=== PATIENT | male | born 1935 | race Caucasian/White ===

== ENCOUNTER 2017-05-04 23:58 | Emergency (ER) | payer BC ==
[~2017-05-04] VITALS: Ht 182.9 cm; Wt 90.7 kg
[~2017-05-04 23:58] MED LIST: RIVA20TA PO
[2017-05-05 00:25] VITALS: BP_SYST 117
[2017-05-05] MEDS ORDERED: CARBIDOPA/LEVODOPA 25/100 MG TABLET PO ONE (01:45)
[2017-05-05] MEDS ORDERED: CARBIDOPA/LEVODOPA 25/100 MG TABLET ONE (02:09)
[2017-05-05 02:55] VITALS: BP_SYST 127
== END 2017-05-05 02:55 | disposition home or self-care (01) ==
LOC: SED 23:58
DX: F03.90 Unspecified dementia, unspecified severity, without behavioral disturbance, psychotic disturbance, mood disturbance, and anxiety (principal); I48.91 Unspecified atrial fibrillation; I10 Essential (primary) hypertension; Z86.73 Personal history of transient ischemic attack (TIA), and cerebral infarction without residual deficits; Z85.46 Personal history of malignant neoplasm of prostate; Z88.0 Allergy status to penicillin
CPT/HCPCS: 99283

== ENCOUNTER 2017-12-16 14:17 | Inpatient (IN) | payer BC ==
[~2017-12-16] VITALS: Ht 182.9 cm; Wt 75.3 kg
[2017-12-16 14:35] VITALS: BP_SYST 121
[2017-12-16 15:33] LABS: ALANINE AMINOTRANSFERASE 23 U/L (12-78); ALBUMIN 3.7 g/dL (3.4-4.8); ANION GAP 6 (5-15); ASPARTATE AMINOTRANSFERASE 18 U/L (10-37); CALCIUM 9.5 mg/dL (8.4-11.0); CHLORIDE 107 mmol/L (98-107); CREATININE 0.98 mg/dL (0.55-1.30); GLUCOSE 123 mg/dL (70-99); POTASSIUM 4.1 mmol/L (3.5-5.1); SODIUM SERUM 142 mmol/L (136-145); TOTAL BILIRUBIN 1.1 mg/dL (0.0-1.0); UREA NITROGEN, BLOOD 23 mg/dL (8-21)
[2017-12-16 15:35] LABS: BASOPHILS # (AUTO) 0.1 K/uL (0.0-0.2); BASOPHILS % (AUTO) 1.3 % (0.0-2.0); EOSINOPHILS # (AUTO) 0.3 K/uL (0.0-0.4); EOSINOPHILS % (AUTO) 3.9 % (0.0-4.0); HEMATOCRIT 39.5 % (36-54); HEMOGLOBIN 13.6 g/dL (14.0-18.0); LYMPHOCYTES # (AUTO) 1.3 K/uL (1.0-5.5); MEAN CORPUSCULAR HEMOGLOBIN 32 pg (27-31); MEAN CORPUSCULAR HGB CONC 34 % (32-36); MEAN CORPUSCULAR VOLUME 94 fL (79.0-98.0); MONOCYTES # (AUTO) 0.7 K/uL (0.0-1.0); MONOCYTES % (AUTO) 7.9 % (1.7-9.3); NEUTROPHILS % (AUTO) 71.9 % (40.0-70.0); PLATELET COUNT (AUTO) 180 K/uL (130-430); RED BLOOD CELL COUNT(AUTO) 4.22 MIL/uL (4.2-6.2); RED CELL DISTRIBUTION WIDTH 12.8 % (9.0-15.0); WHITE BLOOD COUNT (AUTO) 8.4 K/uL (4.8-10.8)
[2017-12-16] MEDS ORDERED: PERMETHRIN 60 GM TOPICAL CREAM (ELIMITE) TP ONE (16:30)
[2017-12-16 19:29] VITALS: BP_SYST 153
[2017-12-16 20:00] VITALS: BP_SYST 153
[2017-12-17 00:31] VITALS: BP_SYST 125
[2017-12-17 08:00] VITALS: BP_SYST 129
[2017-12-17] MEDS: RIVAROXABAN 10 MG TABLET PO SCH (09:48)
[2017-12-17] MEDS ORDERED: COMMUNICATION ORDER XX ONE (10:30)
[2017-12-17] MEDS ORDERED: PYRETHRINS TP ONE (11:00)
[2017-12-17] MEDS ORDERED: PIPERONYL BUTOXIDE TP ONE (11:00)
[2017-12-17 11:19] VITALS: BP_SYST 140
[2017-12-17 15:06] VITALS: BP_SYST 154
[2017-12-17 20:00] VITALS: BP_SYST 154
[2017-12-18 00:39] VITALS: BP_SYST 149
[2017-12-18 08:27] VITALS: BP_SYST 118
[2017-12-18] MEDS: RIVAROXABAN 10 MG TABLET PO SCH (08:38)
[2017-12-18] MEDS ORDERED: PIPERONYL BUTOXIDE TP ONE (10:30)
[2017-12-18] MEDS ORDERED: PYRETHRINS TP ONE (10:30)
[2017-12-18] MEDS ORDERED: COMMUNICATION ORDER XX SCH (10:30)
[2017-12-18] MEDS ORDERED: COMMUNICATION ORDER XX ONE (10:30)
[2017-12-18 11:29] VITALS: BP_SYST 153
[2017-12-18] MEDS ORDERED: IVERMECTIN 3 MG TABLET PO ONE (11:30)
[2017-12-18] MEDS ORDERED: PERMETHRIN 60 GM TOPICAL CREAM (ELIMITE) TP ONE (11:30)
[2017-12-18 16:25] VITALS: BP_SYST 125
[2017-12-18 19:10] VITALS: BP_SYST 124
[2017-12-19] VITALS (7 sets, daily range): BP systolic 104–154
[2017-12-19] MEDS ORDERED: ONDANSETRON HCL 4 MG/2 ML VIAL IVP PRN (08:00)
[2017-12-19] MEDS ORDERED: DIPHENHYDRAMINE HCL 25 MG CAPSULE PO PRN (08:00)
[2017-12-19] MEDS ORDERED: ACETAMINOPHEN 325 MG TABLET PO PRN (08:00)
[2017-12-19] MEDS: RIVAROXABAN 10 MG TABLET PO SCH (09:02)
[2017-12-19] MEDS: METOPROLOL TARTRATE 25 MG TABLET PO SCH ×2 (09:05→20:46)
== END 2017-12-19 21:35 | DRG 607 ==
LOC: SED 14:17 → SMU 17:21
PROVIDERS: ADMIT Internal Medicine Hospice and Palliative Medicine; ATTEND Internal Medicine Hospice and Palliative Medicine
DX: B86 Scabies (principal); I10 Essential (primary) hypertension; I48.2 Chronic atrial fibrillation; B85.1 Pediculosis due to Pediculus humanus corporis; F03.90 Unspecified dementia, unspecified severity, without behavioral disturbance, psychotic disturbance, mood disturbance, and anxiety; Z86.73 Personal history of transient ischemic attack (TIA), and cerebral infarction without residual deficits; Z88.0 Allergy status to penicillin; Z79.01 Long term (current) use of anticoagulants; Z85.46 Personal history of malignant neoplasm of prostate
CPT/HCPCS: 36415; 80053; 84443-TC; 85025; 87210-TC; 97110-GP; 97116-GP; 97530-GP; 97535-GP; 99285